=== PATIENT | female | born 1970 | race Caucasian/White ===

== ENCOUNTER 2019-05-12 00:47 | Day surgery (SDC) | payer BC, SELFPAY ==
[2019-05-11 13:05] VITALS: BMI 36.3
[2019-05-12 08:42] VITALS: BP 148/77; PULSE 79; RESP 16; TEMP 36.4; O2SAT 98
--- NOTE | 2019-05-12 09:04 | PM.HPGS ---
History of Present Illness History of Present Illness Consent: Risks, benefits, and alternatives have been discussed and questions answered. Patient agrees to proceed with procedure. Chief complaint: GERD Narrative: Marti Lester is a 49 year old W female reffered for evaluation of increased heartburn and chest pain. Cardiac evaluation was negative. Pt. improved on aciphex 20 mg po BID. [facility] Social History Social History Gender identity (if verbalized by the patient): Female Meds Home Medications and Allergies Home Medications Medication Instructions Recorded Confirmed Type amlodipine 5 mg PO HS 03/30/19 05/12/19 History cetirizine 10 mg PO 03/30/19 05/12/19 History hydrochlorothiazide 25 mg PO [facility] 03/30/19 05/12/19 History losartan 100 mg PO [facility] 03/30/19 05/12/19 History norethindrone-e.estradiol-iron 1 tablet PO 03/30/19 05/12/19 History [Junel FE 04/04 (28)] pravastatin 10 mg PO 03/30/19 05/12/19 History rabeprazole 20 mg PO 03/30/19 05/12/19 History thyroid (pork) [[place] Thyroid] 240 mg PO [facility] 03/30/19 05/12/19 History fluticasone propionate [Flonase 2 spray INTRANASAL HS 05/11/19 05/12/19 History Allergy Relief] montelukast 10 mg PO 05/11/19 05/12/19 History Allergies Allergy/AdvReac Type Severity Reaction Status Date / Time Sulfa (Sulfonamide Allergy Intermediate Swelling Verified 05/12/19 08:41 Antibiotics) doxycycline AdvReac Severe Nausea Verified 05/12/19 08:41 Vital Signs Vital Signs - 24 hr 05/12/19 08:42 Temperature 36.4 C Pulse Rate 79 Respiratory Rate 16 Blood Pressure 148/77 H Pulse Oximetry 98 Assessment and Plan Additional Plan EGD secondary to increased reflux and chest pain.
[2019-05-12] MEDS: LACTATED RINGERS 1,000 ML 150 ML IV CONT (09:07)
--- NOTE | 2019-05-12 09:17 | P.PNAN_ITS ---
Anes - Initial Pre Proc Eval Procedure: Operation Date: 05/12/19 09:00 Proposed Procedures p Esophagogastroduodenoscopy - Alexander Wisdom MD Date/Time: 05/12/19 09:17 Surgeon: Alexander Wisdom MD Pre Op Diagnosis: GERD Patient Data Age: 49 Gender: F Height: 5 ft 6 in Weight: 104.8 kg Last Vital Signs Temp 36.4 C 05/12/19 08:42 Pulse 79 05/12/19 08:42 Resp 16 05/12/19 08:42 BP 148/77 H 05/12/19 08:42 Pulse Ox 98 05/12/19 08:42 Allergies Allergy/AdvReac Type Severity Reaction Status Date / Time Sulfa (Sulfonamide Allergy Intermediate Swelling Verified 05/12/19 08:41 Antibiotics) doxycycline AdvReac Severe Nausea Verified 05/12/19 08:41 Home Medications Medication Instructions Recorded Confirmed Type amlodipine 5 mg PO HS 03/30/19 05/12/19 History cetirizine 10 mg PO 03/30/19 05/12/19 History hydrochlorothiazide 25 mg PO [facility] 03/30/19 05/12/19 History losartan 100 mg PO QA 03/30/19 05/12/19 History norethindrone-e.estradiol-iron 1 tablet PO 03/30/19 05/12/19 History [Junel 04/04 (28)] pravastatin 10 mg PO HS 03/30/19 05/12/19 History rabeprazole 20 mg PO 03/30/19 05/12/19 History thyroid (pork) [[place] Thyroid] 240 mg PO [facility] 03/30/19 05/12/19 History fluticasone propionate [Flonase 2 spray INTRANASAL HS 05/11/19 05/12/19 History Allergy Relief] montelukast 10 mg PO HS 05/11/19 05/12/19 History Patient hx anesthesia problems: none Family hx anesthesia problems: none PMFSH Past Medical History Medical History (Updated 05/12/19 @ 09:18 by Neri Mitchell MD) Asthma GERD (gastroesophageal reflux disease) HTN (hypertension) Obesity Social History Social History Gender identity (if verbalized by the patient): Female Anes - Eval Final PreProcedure Day of Procedure 05/12/19 09:17 Patient weight: obese Heart: regular rate and rhythm Lungs: clear to auscultation Airway: Mallampati scale class II Neurological: alert and oriented Last oral intake: >/= 8 hours ASA classification: III Emergent: no Anesthetic plan: proceed Anesthesia type and monitoring: general GIVS and standard monitoring Informed Consent: The patient's anesthetic plan and its attendant risks and benefits were discussed with the patient/family/POA. Questions were solicited and answers provided to the satisfaction of the patient/family/POA.
[2019-05-12 10:20] VITALS: BP 119/65; PULSE 68; RESP 25; O2SAT 99
[2019-05-12 10:30] VITALS: BP 126/93; PULSE 72; RESP 22; O2SAT 99
[2019-05-12 10:40] VITALS: BP 134/79; PULSE 68; RESP 18; O2SAT 99
== END 2019-05-12 10:55 | disposition home or self-care (01) ==
PROVIDERS: PCP Nurse Practitioner Family; Visit Provider Internal Medicine Gastroenterology
PROC: 0DJ08ZZ Inspection of Upper Intestinal Tract, Via Natural or Artificial Opening Endoscopic (ICD-10-PCS; CPT 43235; principal; 2019-05-12 09:00)
DX: K21.0 Gastro-esophageal reflux disease with esophagitis (principal); K29.50 Unspecified chronic gastritis without bleeding; J45.909 Unspecified asthma, uncomplicated; I10 Essential (primary) hypertension; E66.9 Obesity, unspecified; Z68.37 Body mass index [BMI] 37.0-37.9, adult
CPT/HCPCS: 43239; 87081; 88305; J2001; J2704; J7120

== ENCOUNTER 2019-10-11 01:40 | Outpatient (CLI) | payer BC, SELFPAY ==
[2019-10-12 14:41] LABS: SARS-CoV-2 RNA PCR Negative
== END 2019-10-11 01:41 | disposition home or self-care (01) ==
LOC: ANHCOVIDDT 01:41
PROVIDERS: PCP Nurse Practitioner Family; Visit Provider Internal Medicine Gastroenterology
DX: Z01.812 Encounter for preprocedural laboratory examination (principal); Z11.59 Encounter for screening for other viral diseases
CPT/HCPCS: 87635; C9803; U0003

== ENCOUNTER 2019-10-13 02:48 | Day surgery (SDC) | payer BC, SELFPAY ==
[2019-10-13 06:55] VITALS: BP 139/59; PULSE 82; RESP 17; TEMP 36.4; O2SAT 99
[2019-10-13] MEDS: LACTATED RINGERS 1,000 ML 150 ML IV CONT (07:07)
--- NOTE | 2019-10-13 07:12 | P.HP_ITS ---
History of Present Illness History of Present Illness Consent: Risks, benefits, and alternatives have been discussed and questions answered. Patient agrees to proceed with procedure. Chief complaint: Neoplasm Screening Narrative: Marti Lester is a 49 year old W female referred for a screening colonoscopy. Last colonoscopy was greater than 10 years ago. Patient is asymptomatic and there is no family history of colon cancer. [facility] Past Medical History Medical History Asthma GERD (gastroesophageal reflux disease) HTN (hypertension) Obesity Social History Social History Gender identity (if verbalized by the patient): Female Meds Home Medications and Allergies Home Medications Medication Instructions Recorded Confirmed Type [place] Thyroid 240 mg PO [facility] 03/30/19 10/13/19 History amlodipine 5 mg PO 03/30/19 10/13/19 History cetirizine 10 mg PO 03/30/19 10/13/19 History hydrochlorothiazide 25 mg PO [facility] 03/30/19 10/13/19 History losartan 100 mg PO [facility] 03/30/19 10/13/19 History norethindrone-e.estradiol-iron 1 tablet PO 03/30/19 10/13/19 History [June04/04 (28)] pravastatin 10 mg PO 03/30/19 10/13/19 History rabeprazole 20 mg PO 03/30/19 10/13/19 History fluticasone propionate [Flonase 2 spray INTRANASAL 05/11/19 10/13/19 History Allergy Relief] montelukast 10 mg PO 05/11/19 10/13/19 History Allergies Allergy/AdvReac Type Severity Reaction Status Date / Time Sulfa (Sulfonamide Allergy Intermediate Swelling Verified 10/13/19 06:51 Antibiotics) doxycycline AdvReac Severe Nausea Verified 10/13/19 06:51 Vital Signs Vital Signs - 24 hr 10/13/19 06:55 Temperature 36.4 C Pulse Rate 82 Respiratory Rate 17 Blood Pressure 139/59 L Pulse Oximetry 99 Exam Const: Orientation/consciousness: patient oriented x3 Resp: Auscultation: clear to auscultation bilaterally Cardio: Rate: regular rate Rhythm: regular rhythm Heart sounds: no murmurs GI: GI Palp: Yes Soft to palpation, No Tenderness to palpation present (GI), Yes No hepatosplenomegaly present and No Palpable mass present Auscultation: normal bowel sounds Neuro: General: patient oriented x3 and no focal motor deficits Extrem: General: no pedal edema Assessment and Plan Additional Plan Screening colonoscopy in average risk patient
--- NOTE | 2019-10-13 07:37 | P.PNAN_ITS ---
Anes - Initial Pre Proc Eval Procedure: Operation Date: 10/13/19 08:00 Proposed Procedures p Screening Colonoscopy - Alexander Wisdom MD Date/Time: 10/13/19 07:37 Surgeon: Alexander Wisdom MD Pre Op Diagnosis: Neoplasm Screening Patient Data Age: 49 Gender: F Height: 5 ft 6 in Weight: 98.7 kg Last Vital Signs Temp 97.6 F 10/13/19 06:55 Pulse 82 10/13/19 06:55 Resp 17 10/13/19 06:55 BP 139/59 L 10/13/19 06:55 Pulse Ox 99 10/13/19 06:55 Allergies Allergy/AdvReac Type Severity Reaction Status Date / Time Sulfa (Sulfonamide Allergy Intermediate Swelling Verified 10/13/19 06:51 Antibiotics) doxycycline AdvReac Severe Nausea Verified 10/13/19 06:51 Home Medications Medication Instructions Recorded Confirmed Type [place] Thyroid 240 mg PO QAM 03/30/19 10/13/19 History amlodipine 5 mg PO 03/30/19 10/13/19 History cetirizine 10 mg PO HS 03/30/19 10/13/19 History hydrochlorothiazide 25 mg PO QA 03/30/19 10/13/19 History losartan 100 mg PO QA 03/30/19 10/13/19 History norethindrone-e.estradiol-iron 1 tablet PO HS 03/30/19 10/13/19 History [04/04 (28)] pravastatin 10 mg PO HS 03/30/19 10/13/19 History rabeprazole 20 mg PO 03/30/19 10/13/19 History fluticasone propionate [Flonase 2 spray INTRANASAL HS 05/11/19 10/13/19 History Allergy Relief] montelukast 10 mg PO HS 05/11/19 10/13/19 History Patient hx anesthesia problems: none Family hx anesthesia problems: none PMFSH Past Medical History Medical History Asthma GERD (gastroesophageal reflux disease) HTN (hypertension) Obesity Social History Social History Gender identity (if verbalized by the patient): Female Anes - Eval Final PreProcedure Day of Procedure 10/13/19 07:37 Patient weight: obese Heart: regular rate and rhythm Lungs: clear to auscultation Airway: Mallampati scale class II Neurological: alert and oriented Last oral intake: >/= 8 hours ASA classification: III Emergent: no Anesthetic plan: proceed Anesthesia type and monitoring: general GIVS and standard monitoring Informed Consent: The patient's anesthetic plan and its attendant risks and benefits were discussed with the patient/family/POA. Questions were solicited and answers provided to the satisfaction of the patient/family/POA.
[2019-10-13 08:33] VITALS: BP 99/72; PULSE 65; RESP 19; O2SAT 100
[2019-10-13 08:43] VITALS: BP 115/66; PULSE 60; RESP 18; O2SAT 97
[2019-10-13 08:53] VITALS: BP 121/71; PULSE 61; RESP 16; O2SAT 98
== END 2019-10-13 09:07 | disposition home or self-care (01) ==
PROVIDERS: PCP Nurse Practitioner Family; Visit Provider Internal Medicine Gastroenterology
PROC: 0DJD8ZZ Inspection of Lower Intestinal Tract, Via Natural or Artificial Opening Endoscopic (ICD-10-PCS; CPT 45378; principal; 2019-10-13 08:00)
DX: Z12.11 Encounter for screening for malignant neoplasm of colon (principal); K64.4 Residual hemorrhoidal skin tags; I10 Essential (primary) hypertension; E78.5 Hyperlipidemia, unspecified; K21.9 Gastro-esophageal reflux disease without esophagitis; E66.9 Obesity, unspecified; Z68.35 Body mass index [BMI] 35.0-35.9, adult; Z88.2 Allergy status to sulfonamides; Z79.3 Long term (current) use of hormonal contraceptives; Z79.899 Other long term (current) drug therapy
CPT/HCPCS: G0121; J2704; J7120

== ENCOUNTER 2021-12-10 14:18 | Outpatient (RCR) | payer BC, SELFPAY ==
[2021-12-10 15:40] VITALS: BMI 38.9
[2021-12-10 15:41] VITALS: BMI 38.9
== END 2022-02-24 09:32 | disposition home or self-care (01) ==
LOC: ANHDMC 14:18
PROVIDERS: PCP Nurse Practitioner Family; Visit Provider Nurse Practitioner Family
DX: E66.9 Obesity, unspecified (principal); Z71.3 Dietary counseling and surveillance
CPT/HCPCS: 97802

== ENCOUNTER 2023-02-13 02:50 | Day surgery (SDC) | payer BC, SELFPAY ==
[2023-02-04 11:48] VITALS: BMI 33.5
--- NOTE | 2023-02-11 09:52 | SUR.PREOP ---
Patient called regarding upcoming procedure. Reviewed preop instructions, appointment times, and procedure prep.
--- NOTE | 2023-02-12 14:14 | P.HP_ITS ---
History of Present Illness History of Present Illness Consent: Risks, benefits, and alternatives have been discussed and questions answered. Patient agrees to proceed with procedure. Chief complaint: rectal pain Narrative: Marti Lester is a 53 year old female referred for colon cancer screening and investigation of rectal pain. Her last colonoscopy was 3 years ago and was unremarkable. lately however she has seen blood in her stools. The blood will be in toilet bowl and often on the toilet paper as well. Is generally bright red. She denies having to strain but has bowel movements that alternate between loose and hard. She has been referred by her service tech to a vulvar specialists regarding lichen planus. Review of Systems Review of Systems: All systems reviewed & are unremarkable except as noted in HPI and below PMFSH Past Medical History Medical History Asthma GERD (gastroesophageal reflux disease) HTN (hypertension) Obesity Social History Social History Alcohol intake: current Alcohol use details: Socially Substance use type: does not use Living arrangements: other Additional living arrangements comments: with sp Gender identity (if verbalized by the patient): Female Spiritual care concerns: No Meds Home Medications and Allergies Home Medications Medication Instructions Recorded Confirmed Type amlodipine 5 mg tablet 5 mg PO HS 03/30/19 02/04/23 History cetirizine 10 mg tablet 10 mg PO HS 03/30/19 02/04/23 History losartan 100 mg tablet 100 mg PO QAM 03/30/19 02/04/23 History pravastatin 10 mg tablet 20 mg PO HS 03/30/19 02/04/23 History rabeprazole 20 mg tablet,delayed 20 mg PO BID 03/30/19 02/04/23 History release thyroid (pork) 240 mg tablet 240 mg PO QAM 03/30/19 02/04/23 History ([place] Thyroid) fluticasone propionate 50 2 spray intranasal HS 05/11/19 02/04/23 History mcg/actuation nasal spray,suspension (Flonase Allergy Relief) montelukast 10 mg tablet 10 mg PO HS 05/11/19 02/04/23 History dapagliflozin propanediol 10 mg 10 mg PO DAILY 02/04/23 02/04/23 History tablet (Farxiga) meloxicam 15 mg tablet 15 mg PO PRN pain 02/04/23 02/04/23 History metformin 500 mg tablet 500 mg PO DAILY 02/04/23 02/04/23 History oxybutynin chloride 5 mg tablet 5 mg PO BID 02/04/23 02/04/23 History semaglutide 1 mg/dose (4 mg/3 mL) 1 mg subcut WEEKLY 02/04/23 02/04/23 History subcutaneous pen injector (Ozempic) Allergies Allergy/AdvReac Type Severity Reaction Status Date / Time Sulfa (Sulfonamide Allergy Intermediate Swelling Verified 02/13/23 11:47 Antibiotics) doxycycline AdvReac Severe Nausea Verified 02/13/23 11:47 Exam Resp: Auscultation: clear to auscultation bilaterally Cardio: Rate: regular rate Rhythm: regular rhythm GI: GI Palp: Yes Soft to palpation and No Tenderness to palpation present (GI) Assessment and Plan Assessment and plan (1) Rectal pain: Code(s): K62.89 - Other specified diseases of anus and rectum Status: Acute Assessment and Plan: Colonoscopy with possible biopsy or polypectomy or cautery or injection of substances.
[2023-02-13 11:49] VITALS: BP 160/84; PULSE 86; RESP 18; TEMP 36.3; O2SAT 99
[2023-02-13] MEDS: LACTATED RINGERS 1,000 ML 150 ML IV CONT (12:02)
[2023-02-13 12:06] LABS: Glucose Point of Care 97 mg/dl (65-105)
--- NOTE | 2023-02-13 12:27 | WPDANESEPPF ---
Anes - Initial Pre Proc Eval Procedure: Operation Date: 02/13/23 13:00 Proposed Procedures p Colonoscopy - Sunny Thompson MD Date/Time: 02/13/23 12:27 Surgeon: Sunny Thompson MD Pre Op Diagnosis: rectal pain Patient Data Age: 53 Gender: F Height: 1.66 m Weight: 95.9 kg Last Vital Signs Temp 97.3 F L 02/13/23 11:49 Pulse 86 02/13/23 11:49 Resp 18 02/13/23 11:49 BP 160/84 H 02/13/23 11:49 Pulse Ox 99 02/13/23 11:49 O2 Del Method Room Air 02/13/23 11:49 Allergies Allergy/AdvReac Type Severity Reaction Status Date / Time Sulfa (Sulfonamide Allergy Intermediate Swelling Verified 02/13/23 11:47 Antibiotics) doxycycline AdvReac Severe Nausea Verified 02/13/23 11:47 Home Medications Medication Instructions Recorded Confirmed Type amlodipine 5 mg tablet 5 mg PO HS 03/30/19 02/04/23 History cetirizine 10 mg tablet 10 mg PO HS 03/30/19 02/04/23 History losartan 100 mg tablet 100 mg PO QAM 03/30/19 02/04/23 History pravastatin 10 mg tablet 20 mg PO HS 03/30/19 02/04/23 History rabeprazole 20 mg tablet,delayed 20 mg PO BID 03/30/19 02/04/23 History release thyroid (pork) 240 mg tablet 240 mg PO QAM 03/30/19 02/04/23 History ([place] Thyroid) fluticasone propionate 50 2 spray intranasal HS 05/11/19 02/04/23 History mcg/actuation nasal spray,suspension (Flonase Allergy Relief) montelukast 10 mg tablet 10 mg PO HS 05/11/19 02/04/23 History dapagliflozin propanediol 10 mg 10 mg PO DAILY 02/04/23 02/04/23 History tablet (Farxiga) meloxicam 15 mg tablet 15 mg PO PRN pain 02/04/23 02/04/23 History metformin 500 mg tablet 500 mg PO DAILY 02/04/23 02/04/23 History oxybutynin chloride 5 mg tablet 5 mg PO BID 02/04/23 02/04/23 History semaglutide 1 mg/dose (4 mg/3 mL) 1 mg subcut WEEKLY 02/04/23 02/04/23 History subcutaneous pen injector (Ozempic) Laboratory Tests 02/13/23 12:02 POC Capillary Glucose 97 mg/dl (65-105) Patient hx anesthesia problems: none Family hx anesthesia problems: none Results Review: All pre-operative results and documents have been reviewed as part of the pre-operative evaluation. [facility] Past Medical History Medical History Asthma GERD (gastroesophageal reflux disease) HTN (hypertension) Obesity Social History Social History Alcohol intake: current Alcohol use details: Socially Substance use type: does not use Living arrangements: other Additional living arrangements comments: with sp Gender identity (if verbalized by the patient): Female Spiritual care concerns: No Anes - Eval Final PreProcedure Day of Procedure 02/13/23 12:27 Patient weight: normal Heart: regular rate and rhythm Lungs: clear to auscultation Airway: Mallampati scale class II Neurological: alert and oriented Last oral intake: >/= 8 hours ASA classification: III Emergent: no Anesthetic plan: proceed Anesthesia type and monitoring: general GIVS and standard monitoring Results Review: All pre-operative results and documents have been reviewed as part of the pre-operative evaluation. Informed Consent: The patient's anesthetic plan and its attendant risks and benefits were discussed with the patient/family/POA. Questions were solicited and answers provided to the satisfaction of the patient/family/POA.
[2023-02-13] MEDS: ONDANSETRON INJ 4 MG/2 ML VIAL IV PUSH (12:32)
[2023-02-13 13:01] VITALS: BP 129/79; PULSE 85; RESP 18; O2SAT 97
[2023-02-13 13:11] VITALS: BP 135/81; PULSE 95; RESP 18; O2SAT 98
[2023-02-13 13:21] VITALS: BP 134/84; PULSE 94; RESP 18; O2SAT 99
== END 2023-02-13 13:26 | disposition home or self-care (01) ==
PROVIDERS: PCP Nurse Practitioner Family; Visit Provider Internal Medicine Gastroenterology
PROC: 0DJD8ZZ Inspection of Lower Intestinal Tract, Via Natural or Artificial Opening Endoscopic (ICD-10-PCS; CPT 45378; principal; 2023-02-13 13:00)
DX: K62.89 Other specified diseases of anus and rectum (principal); K64.4 Residual hemorrhoidal skin tags; K21.9 Gastro-esophageal reflux disease without esophagitis; I10 Essential (primary) hypertension; E66.9 Obesity, unspecified; Z68.34 Body mass index [BMI] 34.0-34.9, adult
CPT/HCPCS: 45378; 82948; J2405; J2704; J7120

== ENCOUNTER 2024-09-05 20:44 | Emergency (ER) | payer OTHER, SELFPAY ==
[2024-09-05] VITALS (11 sets, daily range): BP systolic 121–156; BP diastolic 61–82; PULSE 83–99; RESP 12–20; TEMP 36.1; O2SAT 91–99
--- NOTE | ~2024-09-05 | XR_ITS ---
CHEST RADIOGRAPH CLINICAL HISTORY: Heart palpitations . COMPARISON: 03/30/2019 TECHNIQUE: Single portable view of the chest. FINDINGS The cardiomediastinal silhouette is unremarkable. Increased interstitial markings are identified bilaterally, findings suggesting mild pulmonary vascul ar congestion. The lungs are otherwise clear. IMPRESSION: Mild pulmonary vascular congestion, an interval change, without focal infiltrate or effusion. Reviewed, dictated and finalized at location A. IMPRESSION: Mild pulmonary vascular congestion, an interval change, without focal infiltrat e or effusion.
--- NOTE | 2024-09-05 20:46 | ECG_ITS ---
Test Date: 2024-09-05 20:51:40 Measurements Intervals [place] Rate: 96 P: 29 MI: 162 QRS: 11 QRSD: 90 T: 32 QT: 298 QTc: 378 Interpretive Statements SINUS RHYTHM WITH FREQUENT VENTRICULAR PREMATURE COMPLEXES POSSIBLE ANTERIOR MYOCARDIAL INFARCTION , PROBABLY OLD CONSIDER INFERIOR INFARCT, AGE INDETERMINATE BORDERLINE ST-T WAVE ABNORMALITY- ANT/HIGH LAT LEADS ABNORMAL ECG No previous ECG available for comparison Electronically Signed On 09-06-2024 06:11:58 CDT by Edison Bhakta D.O.
--- NOTE | 2024-09-05 22:41 | ED_ITS ---
HPI - General Adult General Chief complaint: Dizziness Stated complaint: dizziness, low bp, irregular HR, afib on watch Time Seen by Provider: 09/05/24 22:19 History of Present Illness HPI narrative: 54-year-old female presented to the emergency department for evaluation for heart palpitations. Patient does have a history of hypertension does take amlodipine and hydrochlorothiazide and losartan. Patient states her blood pressure was low this morning so she did not take her blood pressure medication. Patient states yesterday she did work and the son and suspects that she may be dehydrated. Patient was having issues with lightheadedness today. Patient initially describes his dizziness but states that is not vertigo. Related Data Home Medications ?Medication ?Instructions ?Recorded ?Confirmed ?Last Taken ?Type blood sugar diagnostic (ShotlstTouch 06/23/23 07/05/24 Unknown History Ultra Test strips) blood-glucose meter (ShotlstTouch 06/23/23 07/05/24 Unknown History Ultra2 Meter) lancets 30 gauge (OneTouch Delica 06/23/23 07/05/24 Unknown History Plus Lancet) estradiol 1 mg/gram (0.1 %) 1 packet transdermal DAILY 06/25/23 07/05/24 Unknown History transdermal gel packet methotrexate sodium 2.5 mg tablet 15 mg PO WEEKLY 07/05/24 07/05/24 Unknown History Allergies Allergy/AdvReac Type Severity Reaction Status Date / Time Sulfa (Sulfonamide Allergy Intermediate Swelling Verified 09/05/24 21:11 Antibiotics) doxycycline AdvReac Severe Abdominal Verified 09/05/24 21:11 Pain Review of Systems 2 Review of Systems: All systems reviewed & are unremarkable except as noted in HPI and below PMFSH Past Medical History Medical History Asthma Dermatosis of scalp Diabetes GERD (gastroesophageal reflux disease) HTN (hypertension) Hyperlipidemia Hypothyroidism Joint pain Lichen sclerosus of female genitalia Obesity Osteoarthritis Overactive bladder Pain in finger Seasonal allergic rhinitis Urinary frequency Urinary incontinence Vitamin D deficiency Surgical History Surgical History H/O colonoscopy 2020 H/O esophagogastroduodenoscopy 2020 H/O knee surgery History of carpal tunnel release History of total left hip replacement Family History Family History Mother Heart disease Hypertension Father Hypercholesterolemia Acute myocardial infarction Heart disease Hypertension Sibling Hypertension Heart disease Hypercholesterolemia Social History Social History (Updated 07/04/24 @ 13:53 by Noman Hyde) Social History: 06/28/24 very confident with medical forms Smoking status: Never smoker Alcohol intake: current Alcohol use details: Socially Substance use: never Do You Feel Safe in your Home?: Yes Lack of Transportation: No Lack of Food: Never True Current Housing: I Have Housing Concerned About Future Housing: No Difficulty Paying Gas/Electric Bills: No Difficulty Paying for Meds: No Currently Unemployed: No Education: Master's Degree or Higher Difficulty w/ Childcare or Family Care: No Living arrangements: with family Additional living arrangements comments: Occupation/Education: occupation Additional occupation/education comments: Nurse Practioner at [employer] Gender identity (if verbalized by the patient): Female Spiritual care concerns: No Agree to blood products: Yes Exam 2 Narrative: APPEARANCE: Well appearing, no pain, no distress, well-nourished. HEAD: normocephalic, atraumatic. EYES: PERRLA/EOMI, conjunctivae clear. NOSE: Normal no drainage EARS:TMS clear with good light reflex. THROAT: Pharynx clear, no exudate. NECK: Supple. No adenopathy, no masses. RESPIRATORY: Airway patent, respirations nonlabored. Clear to auscultation bilaterally, no rales, rhonchi, wheezing. CARDIOVASCULAR: Regular rate and rhythm without murmurs rubs or gallops. ABDOMINAL: Soft, nontender, nondistended, normal bowel sounds MUSCULOSKELETAL: Moves all extremities. Strength/ROM intact, No edema, No calf tenderness. NEURO: Alert. Cranial nerves II through XII intact. Grossly intact SKIN: Warm, dry. Normal Color Course Vital Signs Vital signs: Vital Signs Temperature 97 F L 09/05/24 21:05 Pulse Rate 83 09/05/24 21:05 Respiratory Rate 18 09/05/24 21:05 Blood Pressure 156/82 H 09/05/24 21:05 Pulse Oximetry 97 09/05/24 21:05 Oxygen Delivery Room Air 09/05/24 21:05 Temperature 98.1 F 09/06/24 00:24 Pulse Rate 85 09/06/24 00:24 Respiratory Rate 21 H 09/06/24 00:24 Blood Pressure 122/72 09/06/24 00:24 Pulse Oximetry 98 09/06/24 00:24 Oxygen Delivery Room Air 09/05/24 21:05 Medical Decision Making [facility] Narrative Medical decision making narrative: 54-year-old female presents emergency department for evaluation for lightheaded dizziness and heart palpitations. Patient is currently afebrile with a leukocytosis of 10.3 and hemoglobin 13.4. INR 1.0. Patient's potassium was 2.9 this was replaced orally. No other acute abnormalities on her CMP TSH and Mag were within normal limits. Chest x-ray showed mild pulmonary vascular congestion. EKG showed normal sinus rhythm with frequent PVCs. Patient had no episodes of atrial fibrillation or SVT in the emergency department. No overlying evidence of infection, patient was encouraged close follow-up with her primary care physician for additional outpatient cardiac testing including a Holter monitor. Differential Diagnosis Differential Diagnosis: SVT, AFib, dehydration, PVCs, left great abnormality Vital Signs Vital Signs: Vital Signs Temperature 97 F L 09/05/24 21:05 Pulse Rate 83 09/05/24 21:05 Respiratory Rate 18 09/05/24 21:05 Blood Pressure 156/82 H 09/05/24 21:05 Pulse Oximetry 97 09/05/24 21:05 Oxygen Delivery Room Air 09/05/24 21:05 Temperature 98.1 F 09/06/24 00:24 Pulse Rate 85 09/06/24 00:24 Respiratory Rate 21 H 09/06/24 00:24 Blood Pressure 122/72 09/06/24 00:24 Pulse Oximetry 98 09/06/24 00:24 Oxygen Delivery Room Air 09/05/24 21:05 Lab Data Lab results reviewed: Yes I reviewed the patient's lab results. 09/05/24 22:46 09/05/24 22:46 Labs: Lab Results 09/05/24 Range/Units 22:46 WBC 10.3 H (4.5-10.0) K/mm3 RBC 4.61 (4.2-5.4) M/mm3 Hgb 13.4 (12.0-15.0) g/dL Hct 40.7 (37.0-47.0) % MCV 88.3 (80-100) fl MCH 29.1 (26-34) pg MCHC 32.9 (32-36) g/dl RDW 14.1 (11.5-14.5) % Plt Count 262 (150-375) k/mm3 MPV 10.6 H (7.4-10.4) fl Immature Gran % (Auto) 0.3 (0-0.5) % Neut % (Auto) 60.6 (45.5-73.1) % Lymph % (Auto) 29.5 (18.3-44.2) % Oliver % (Auto) 8.1 (2.6-8.5) % Eos % (Auto) 0.9 (0-4.4) % Baso % (Auto) 0.6 (0.2-1.2) % Lymph # (Auto) 3.05 (0.9-3.2) K/mm3 Oliver # (Auto) 0.8 H (0.1-0.6) K/mm3 Eos # (Auto) 0.1 (0-0.3) K/mm3 Baso # (Auto) 0.1 (0.0-0.1) K/mm3 Abs Immat Gran (auto) 0.03 (0.00-0.031) K/mm3 Absolute Neuts (auto) 6.3 (1.3-6.7) K/mm3 Absolute Nucleated RBC 0.000 (0.0-0.012) K/mm3 Nucleated RBC % 0.0 (0.0-0.2) % PT 13.4 (11.1-14.7) Seconds INR 1.0 APTT 23.6 (22.3-36.8) Seconds Sodium 139 (137-145) mmol/L Potassium 2.9 L (3.4-5.0) mmol/L Chloride 103 (98-107) mmol/L Carbon Dioxide 27 (22-30) mmol/L Anion Gap 9 (4-12) mmol/L BUN 12 (7-17) mg/dL Creatinine 0.70 (0.7-1.0) mg/dL Estim Creat Clear Calc 93 ml/min Estimated GFR > 60 (59 - ) Glucose 121 H (65-110) mg/dL Calcium 9.7 (8.4-10.2) mg/dL Magnesium 2.0 (1.6-2.3) mg/dL Total Bilirubin 0.3 (0.2-1.3) mg/dL AST 45 H (14-36) U/L ALT 60 H (6-35) U/L Alkaline Phosphatase 103 (38-126) U/L Total Protein 7.6 (6.3-8.2) g/dL Albumin 4.4 (3.5-5.1) g/dL TSH (Reflex) 0.603 (0.465-4.68) uIU/mL Imaging Data Radiologist's impression: Impressions Chest X-Ray 09/05/24 22:30 IMPRESSION: Mild pulmonary vascular congestion, an interval change, without focal infiltrate or effusion. Discharge Plan Discharge Clinical Impression: Frequent PVCs Patient Disposition: Home Condition: Stable Instructions: Antibiotic Form, Heart Palpitations (DC) Additional Instructions: Home medications as directed. Drink plenty of fluids. Have close follow-up with your primary care physician for additional outpatient cardiac testing potentially including a Holter monitor. If you have any worsening symptoms then please call or return to the emergency department. Patient Language: Botswanan Prescriptions: No Action estradiol 1 mg/gram (0.1 %) gel in packet 1 packet transdermal DAILY meloxicam 15 mg tablet 15 mg PO PRN Qty: 90 1RF amlodipine 5 mg tablet 5 mg PO HS Qty: 90 1RF rabeprazole 20 mg tablet,delayed release (DR/EC) 20 mg PO BID Qty: 180 1RF oxybutynin chloride 5 mg tablet 5 mg PO BID Qty: 180 3RF losartan 100 mg tablet 100 mg PO QAM Qty: 90 1RF hydrochlorothiazide 25 mg tablet 25 mg PO DAILY Qty: 90 1RF methotrexate sodium 2.5 mg tablet 15 mg PO WEEKLY (DME) lancets [ShotlstTouch Delica Plus Lancet] 30 gauge misc See Rx Instructions .Route Rx Instructions: use to check fasting blood sugar daily (DME) OneTouch Ultra Test Strip See Rx Instructions .Route Rx Instructions: check fasting glucose in the morning (DME) blood-glucose meter [OneTouch Ultra2 Meter] Misc See Rx Instructions .Route Rx Instructions: As directed cetirizine 10 mg tablet 10 mg PO HS Qty: 90 3RF albuterol sulfate 90 mcg/actuation HFA aerosol inhaler 2 puff inhalation Q4H PRN (Reason: shortness of breath or wheezing) Qty: 8.5 3RF Ozempic 2 mg/dose (8 mg/3 mL) pen injector 2 mg subcut WEEKLY Qty: 9 1RF montelukast 10 mg tablet 10 mg PO HS Qty: 90 3RF [place]ountain Thyroid 240 mg tablet 240 mg PO QAM Qty: 90 1RF pravastatin 40 mg tablet 40 mg PO QHS Qty: 90 1RF fluticasone propionate [Flonase Allergy Relief] 50 mcg/actuation spray,suspension 2 spray INTRANASAL HS Qty: 16 5RF Follow-up/Referrals: Loan Apodaca APRN [Primary Care Provider] -
[2024-09-05 22:53] LABS: Basophils Absolute Auto 0.1 K/mm3 (0.0-0.1); Basophils Percent Auto 0.6 % (0.2-1.2); Eosinophils Absolute Auto 0.1 K/mm3 (0-0.3); Eosinophils Percent Auto 0.9 % (0-4.4); Hematocrit 40.7 % (37.0-47.0); Hemoglobin 13.4 g/dL (12.0-15.0); Immature Granulocyte Absolute 0.03 K/mm3 (0.00-0.031); Immature Granulocyte Percent A 0.3 % (0-0.5); Lymphocytes Absolute Auto 3.05 K/mm3 (0.9-3.2); Lymphocytes Percent Auto 29.5 % (18.3-44.2); Mean Corpuscular HGB Conc 32.9 g/dl (32-36); Mean Corpuscular Hemoglobin 29.1 pg (26-34); Mean Corpuscular Volume 88.3 fl (80-100); Mean Platelet Volume 10.6 fl (7.4-10.4); Monocytes Absolute Auto 0.8 K/mm3 (0.1-0.6); Monocytes Percent Auto 8.1 % (2.6-8.5); Neutrophils Absolute Auto 6.3 K/mm3 (1.3-6.7); Neutrophils Percent Auto 60.6 % (45.5-73.1); Platelet Count Result 262 k/mm3 (150-375); Red Blood Count 4.61 M/mm3 (4.2-5.4); Red Cell Distribution Width 14.1 % (11.5-14.5); White Blood Count 10.3 K/mm3 (4.5-10.0)
[2024-09-05 23:05] LABS: Partial Thromboplastin Time 23.6 Seconds (22.3-36.8); Prothrombin Time 13.4 Seconds (11.1-14.7)
[2024-09-05 23:07] LABS: Alanine Aminotransferase 60 U/L (6-35); Albumin Level 4.4 g/dL (3.5-5.1); Alkaline Phosphatase 103 U/L (38-126); Anion Gap 9 mmol/L (4-12); Aspartate Amino Transferase 45 U/L (14-36); Bilirubin,Total 0.3 mg/dL (0.2-1.3); Blood Urea Nitrogen 12 mg/dL (7-17); Calcium 9.7 mg/dL (8.4-10.2); Carbon Dioxide 27 mmol/L (22-30); Chloride 103 mmol/L (98-107); Estimated CRCL calculation 93 ml/min; Estimated Glomerular Filt Rate > 60; Glucose 121 mg/dL (65-110); Potassium 2.9 mmol/L (3.4-5.0); Sodium 139 mmol/L (137-145); Total Protein 7.6 g/dL (6.3-8.2)
[2024-09-05] MEDS: POTASSIUM CHLORIDE 20 MEQ PACKET (FOR LIQUID) 40 MEQ PO (23:33)
[2024-09-05 23:38] LABS: Thyroid Stimulating Hormone Reflex 0.603 uIU/mL (0.465-4.68)
[2024-09-06 00:24] VITALS: BP 122/72; PULSE 85; RESP 21; TEMP 36.7; O2SAT 98
== END 2024-09-06 00:25 | disposition home or self-care (01) ==
PROVIDERS: Emergency Provider Emergency Medicine; PCP Nurse Practitioner Family
DX: I49.3 Ventricular premature depolarization (principal); I10 Essential (primary) hypertension; J45.909 Unspecified asthma, uncomplicated; E11.9 Type 2 diabetes mellitus without complications; E03.9 Hypothyroidism, unspecified; E78.5 Hyperlipidemia, unspecified; E55.9 Vitamin D deficiency, unspecified; K21.9 Gastro-esophageal reflux disease without esophagitis; M19.90 Unspecified osteoarthritis, unspecified site; N32.81 Overactive bladder; R32 Unspecified urinary incontinence; Z79.899 Other long term (current) drug therapy; Z96.652 Presence of left artificial knee joint; R09.89 Other specified symptoms and signs involving the circulatory and respiratory systems; R94.31 Abnormal electrocardiogram [ECG] [EKG]; Z79.85 Long-term (current) use of injectable non-insulin antidiabetic drugs
CPT/HCPCS: 36415; 71045; 80053; 83735; 84443; 85025; 85610; 85730; 93005; 99284; A9270

== ENCOUNTER 2024-10-27 14:21 | Outpatient (CLI) | payer OTHER, SELFPAY ==
--- OUTSIDE RECORDS SUMMARY | 2024-10-27 14:25 | XMS_ITS | Encounter Summary ---
Author Organization [facility] Address [address] [place] [address] Care Team Providers Care Kaiako Kura [place] Maori Name Role Phone Unavailable Primary Care Provider Unavailabl e Encounter Details Date Type Department Care Team (Late Contact Info) Description 08/30/2024 Results Follow-Up [facility] Shelton Tilley [address] [facility] [address] [place] [address] [place] [address] [address] [facility] [address] [place] [address] XR CLAVICLE BILAT, HEPATIC FUNCTION PANEL Social History Tobacco Use Types Packs/Day Years Used Date Smoking Tobacco: Never Alcohol Use Standard Drinks/Week Comments Yes 0 (1 standard drink = 0.6 oz pur e alcohol) Rare on occassions Comments No Sex and Gender Information Value Date Recorded Sex Assigned at Female 12/24/2022 3:08 PM CDT Legal Sex Female 3:27 PM CDT Gender Identity Female 12/24/2022 3:08 PM CDT Sexual Orientation Not on file documented as of this encounter Plan of Treatment Upcoming Encounters Date Type Department Care Team (Late st Contact Info) Description 02/28/2025 9: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 [place] [address] Melita Vanessa MD [address] [place] [address] documented as of this encounter Visit Diagnoses Not on filedocumented in this encounter
--- OUTSIDE RECORDS SUMMARY | 2024-10-27 14:25 | XMS_ITS | Clinical Summary ---
Author Organization [facility] Address [address] [place] [address] Care Team Providers Care Electricity Trading Analyst Name Role Phone Unavailable Primary Care Provider Unavailabl e Encounters Date Type Department Care Team Description 09/15/2024 Telephone [facility], [address] [phone] Aditya Calderon MD Appointment Request from Last 3 Months Social History Tobacco Use Types Packs/Day Years Used Date Smoking Tobacco: Never Assessed Comments Unknown Sex and Gender Information Value Date Recorded Sex Assigned at Not on file Legal Sex Female 1:45 PM CDT Gender Identity Not on file Sexual Orientation Not on file Plan of Treatment Upcoming Encounters Date Type Department Care Team (Late st Contact Info) Description 12/21/2024 9:15 AM CDT Office Visit [facility] [facility], [address] [phone] Aditya Calderon MD [facility] [address] [place], [place] [id number] Health Maintenance Due Date Last Done Comments Cervical Cancer Screening Pa p Smear (Age 30 to 64) Every 3 Years 1968 Colorectal Cancer Screening Colonoscopy (10 Years) 1968 Annual Physical 01/13/1971 Hepatitis C 01/13/1986 DTaP, Tdap and Td Vaccines ( 1 - Tdap) 01/13/1987 Hepatitis B Vaccines (1 of 3 - 19+ 3-dose series) 01/13/1987 Cervical Cancer Screening Pa p with HPV Testing (Age 30 to 64) Every 5 Years 01/13/1998 Cervical Cancer Screening with HPV 01/13/1998 Mammogram Screening 2008 Pneumococcal Vaccine: 50+ Ye ars (1 of 1 - PCV) 01/13/2018 Zoster Vaccines (1 of 2) 01/13/2018 COVID-19 Vaccine (1 - 2023-2 5 season) 2023 Meningococcal B Vaccine Aged Out No l onger eligible based on patient's age to complete this topic Meningococcal Vaccine Aged Out No carole tiera eligible based on patient's age to complete this topic RSV Immunizations Under 20 Months Aged Out No longer eligible based on patient's age to complete this topic Insurance R
--- OUTSIDE RECORDS SUMMARY | 2024-10-27 14:25 | XMS_ITS | Clinical Summary ---
Author Organization [facility] Address [address] [place] [address] Care Team Providers Care Customer Security Clerk Name Role Phone Singh Venegas MD Unavailable [phone] Loan Apodaca APRN-COMPLAINT INSPECTOR Primary Care Provider Source Comments [facility],non-owned Affiliates and Associated Physician Practices is amultiple site organization consisting of ambulatory clinics and hospital sitesin [place], [place], [place] and [place]. This disclosure is being madepursuant to the Care Everywhere program and may not contain all information available regarding this patient. Last updated 17.[facility] Allergies Active Allergy Reactions Criticality Noted Date Comments Doxycycline GI Discomfort,Other Low 09/30/2016 Polymyxin B-Trimethoprim Swelling Medium 09/30/2016 eyedrop Sulfa Drugs Urticaria,Rash Medium 04/10/2017 Medications * Be aware that medications may not be up to date on this document. Alwaysverify current medications with the patient. MULTIVITAMIN PO Take by mouth. Activ e CALCIUM + D PO Take by mouth. Active PEPCID PO Take by mouth. Activ e SINGULAIR 10 MG tablet 1 Active Albuterol Sulfate 108 (90 Base) MCG/ACT Inhale 180 mcg by mouth Active amLODIPine (NORVASC) 5 MG tablet amlodipine 5 mg tablet TK 1 T PO QD 9 Active cetirizine (ZYRTEC) 10 MG tablet cetirizine 10 mg tablet TAKE 1 TABLET BY MOUTH EVERY DAILY 9 Active vitamin D3 (CHOLECALCIFER OL) 25 MCG (1000 UNITS) tablet VITAMIN D TABLET 0 Active fluticasone propionate (FLONASE) 50 MCG/ACT nasal spray [place] 1 spray into the nose Active hydroCHLOROthi azide (HYDRODIURIL) 12.5 MG every 24 hours Activ e losartan (COZAAR) 100 MG tablet losartan 100 mg tablet TAKE 1 TABLET BY MOUTH EVERY DAY 9 Active pravastatin (PRAVACHOL) 10 MG tablet pravastatin 10 mg tablet TAKE 1 TABLET BY MOUTH EVERY DAY 1 Active RABEprazole EC (ACIPHEX) 20 MG tablet rabeprazole 20 mg tablet,delayed release TAKE 1 TABLET BY MOUTH TWICE DAILY 9 Active thyroid (ARMOUR THYROID) 240 MG tablet [place] Thyroid 240 mg tablet TAKE 1 TABLET BY MOUTH EVERY DAY 9 Active triamcinolone acetonide (KENALOG) 0.025 % ointment triamcinolone acetonide 0.025 % topical ointment LILIYA EXT AA BID FOR 2 WKS PRN Active meloxicam (MOBIC) 15 MG tablet 1 Active Active Problems Problem Noted Date Diagnosed Date Urinary incontinence 01/26/2019 Abnormal liver enzymes 11/09/2018 Palpitations 11/09/2018 Syncope and collapse 11/09/2018 Dizziness 04/01/2018 Asthma 09/11/2017 HLD (hyperlipidemia) 09/11/2017 Hypothyroidism 09/11/2017 Gastroesophageal reflux disease 01/13/2017 Carpal tunnel syndrome 07/14/2011 Internal hemorrhoids 09/02/2010 Anemia, iron deficiency 08/02/2010 Urine, incontinence, stress female 08/02/2010 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 IMO update 06 14 2017 Migraine 01/31/2009 Environmental allergies 01/31/2009 2-3* Cystocele 01/31/2009 1* Rectocele 01/31/2009 Heavy menstrual period 01/31/2009 HTN (hypertension) 01/31/2009 Tachycardia 01/31/2009 Graves disease 01/31/2009 Hypocalcemia 12/08/2008 Resolved Problems Problem Noted Date Diagnosed Date Resolved Date Cough 11/09/2018 07/03/2020 Family History Medical History Relation Name Comments Cancer - Breast Maternal Aunt Relation Name Status Comments Maternal Aunt Social History Tobacco Use Types Packs/Day Years Used Date Smoking Tobacco: Never Smokeless Tobacco: Never Alcohol Use Standard Drinks/Week Comments Yes 0 (1 standard drink = 0.6 oz pur e alcohol) occas Comments No Sex and Gender Information Value Date Recorded Sex Assigned at Not on file 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 Gender Identity Not on file Sexual Orientation Not on file Last Filed Vital Signs Vital Sign Reading Time Taken Comments Blood Pressure 136/84 08/02/2010 12:23 PM CDT Pulse - - Temperature - - Respiratory Rate - - Oxygen Saturation - - Inhaled Oxygen Concentration - - Weight 87.1 kg (192 lb) 08/02/2010 12:23 PM CDT Height - - Body Mass Index - - Plan of Treatment Health Maintenance Due Date Last Done Comments COLOGUARD (AGES 45-75) - COLON CA SCREENING 1968 COLON MONITORING 1968 COLONOSCOPY - COLON CA SCREENING 1968 CT COLONOGRAPHY - COLON CA SCREENING 1968 Colorectal Cancer Screening 1968 FIT - COLON CA SCREENING 1968 FLEX SIG - COLON CA SCREENING 1968 HIV SCREENING 01/13/1983 HEPATITIS C SCREENING 01/09/1986 DTAP/TDAP/TD VACCINES (1 - Tdap) 01/13/1987 HEPATITIS B VACCINE (1 of 3 - 19+ 3-dose series) 01/13/1987 PNEUMOCOCCAL VACCINE 50+ (1 of 1 - PCV) 01/13/2018 ZOSTER VACCINE (1 of 2) 01/13/2018 COVID-19 VACCINE (3 - season) 2023 03/25/2020, 03/03/2020 MAMMOGRAM 12/17/2023 12/16/2021, 06/14, 03/13/2011, Additional history exists DEPRESSION SCREENING 03/16/2024 INFLUENZA VACCINE (#1) 2024 9, 01/20/2018, 12/15/2016, Additional history exists HIB VACCINE Aged Out No longer eligi ble based on patient's age to complete this topic HPV VACCINE Aged Out No longer eligi ble based on patient's age to complete this topic MENINGOCOCCAL (Group B) VACCINE SHARED DECISION-MAKING Aged Out No longer eligible based on patient's age to complete this topic MENINGOCOCCAL GROUPS A/C/Y/W VACCINE Aged Out No longer eligible based on patient's age to complete this topic Procedures Procedure Name Priority Date/Time Associated Diagnosis Comments MAMMO BILAT SCREENING Routine 03/13/2011 Screening mammogram from Last 3 Months or Most Recently Relevant to Health Maintenance Results * MAMMO SCREENING DIGITAL IMAGE BILAT (03/13/2011) Anatomical Region Laterality Modality Breast Bilateral Other Singh Venegas MD MAMMO ORDERABLES Final Result from Last 3 Months or Most Recently Relevant to Health Maintenance Insurance NELIDA * Guarantor: MARTI SERVIN Account Type Relation to Patient Date of Phone Billing Address Personal/Family 1970 [id number] [place] [address] Care Teams Customer Security Clerk Relationship Specialty Start Date End Date Singh Venegas MD [address] [place] [address] [place] [id number] PCP - OBGYN 01/31/09 Loan Apodaca APRN-COMPLAINT INSPECTOR [address] [place] [address] PCP - General 06/01/20
--- OUTSIDE RECORDS SUMMARY | 2024-10-27 14:25 | XMS_ITS | Clinical Summary ---
Author Organization [facility] Address [address] [place] [address] Care Team Providers Care Parts Runner Name Role Phone Loan Apodaca NP Primary Care Provider + Cecilia Rowan MD Unavailable [phone] Allergies Active Allergy Reactions Criticality Noted Date Comments Doxycycline Stomach upset,Other (See comments) Low 09/30/2016 Other Swelling Medium 09/30/2016 eyedrop Polymyxin B Sulf-Trimethoprim Swelling Medium 09/30/2016 Sulfa (Sulfonamide Antibiotics) Hives,Rash,Urticaria Medium 04/10/2017 Medications amLODIPine (NORVASC) 5 mg tablet Take 5 mg by mouth nightly. 8 Active thyroid (ARMOUR THYROID) 240 mg tablet Take 240 mg by mouth community health coordinator before breakfast. 4 Active cetirizine (ZyrTEC) 10 mg tablet Take 10 mg by mouth nightly. 8 Active montelukast (SINGULAIR) 10 mg tablet Take 10 mg by mouth nightly. [address] (ACIPHEX) 20 mg EC tablet Take 20 mg by mouth nightly. 8 Active albuterol sulfate 90 mcg/actuation aerosol powdr breath activated Inhale 180 mcg every 4 (four) hours as needed. Active fluticasone (FLONASE) 50 mcg/actuation nasal spray Administer 1 spray into each nostril 2 (two) times a day as needed for rhinitis. Active amoxicillin (AMOXIL) 500 mg tablet/capsule Take 4 tablet 1 hour prior to dental procedure. 8 tablet/capsu le 1 9 Active Additional Information Patient not taking.Reported on 11/19/2021 hydroCHLOROthia zide (HYDRODIURIL) 25 mg tablet TK 1 T PO QD 1 9 Active losartan (COZAAR) 100 mg tablet TK 1 T PO QD 1 9 Active pravastatin (PRAVACHOL) 10 mg tablet 20 mg 1 9 Active cholecalciferol (VITAMIN D-3) 25 mcg (1,000 unit) tablet VITAMIN D TABLET 0 Active famotidine (PEPCID) 40 mg tablet Take by mouth 2 (two) times a day as needed 0 Active dxygnkfv-wtmq-q ollag-hyalur ac 709-948-21-2 mg capsule Take by mouth Active meloxicam (MOBIC) 15 mg tablet TAKE 1 TABLET(15 MG) BY MOUTH DAILY 30 tablet 2 2 Active benzonatate (TESSALON) 100 mg capsule as needed 2 Active metFORMIN (GLUCOPHAGE) 500 mg tablet 2 Active oxybutynin (DITROPAN) 5 mg tablet 2 Active cyanocobalamin (Vitamin B-12) 1,000 mcg tabletIndicatio ns:Prevention of Vitamin B12 Deficiency Take 1,000 mcg by mouth daily Active Active Problems Problem Noted Date Diagnosed Date Family history of ischemic h eart disease and other diseases of the circulatory system 04/11/2019 Shortness of breath 04/11/2019 Snoring 04/11/2019 Chest pain 04/11/2019 Encounter for screening for cardiovascular disor ders 04/11/2019 Urinary incontinence 01/26/2019 Abnormal liver enzymes 11/09/2018 Cough 11/09/2018 Dysuria 11/09/2018 Fracture of bone 11/09/2018 Indigestion 11/09/2018 Injury of ankle 11/09/2018 Palpitations 11/09/2018 Posterior rhinorrhea 11/09/2018 Rash 11/09/2018 Syncope and collapse 11/09/2018 Vitamin D deficiency 11/09/2018 Dizziness 04/01/2018 Osteoarthritis of left hip 09/11/2017 Hypothyroidism 09/11/2017 Essential hypertension 09/11/2017 HLD (hyperlipidemia) 09/11/2017 Asthma 09/11/2017 Gastroesophageal reflux disease 09/11/2017 History of anemia 09/11/2017 Obesity 09/11/2017 Seasonal allergic rhinitis 01/13/2017 Carpal tunnel syndrome 07/14/2011 Internal hemorrhoids 09/02/2010 Iron deficiency anemia due to chronic blood loss 09/02/2010 Anemia, iron deficiency 08/02/2010 Urine, incontinence, stress female 08/02/2010 Mass of skin 07/05/2010 Chondromalacia of patella 11/29/2009 Rectocele 01/31/2009 Cystocele 01/31/2009 Encounter for health-related screening 9 Overview (11/11/2017): Overview: Last PAP 08/02/10: normal Last MAMM 03/13/11: normal R, all ok after add views L per pt 03/20/11 Last Colonoscopy 05/2010: normal/ internal hemds. IMO update 06 14 2017 Environmental allergies 01/31/2009 Graves disease 01/31/2009 Heavy menstrual period 01/31/2009 Migraine 01/31/2009 Tachycardia 01/31/2009 Hypocalcemia 12/08/2008 Migraine headache 12/08/2008 Postoperative hypothyroidism 12/08/2008 Encounter for preventive health examination 07/14 Immunizations Immunization Administration Dates Next Due Influenza, Quadrivalent, Spl it, Intramuscular 12/15/2016 Influenza, Quadrivalent, Spl it, Preservative Free, Intramuscular 01/20/2018,12/12/2014 Influenza, Trivalent, IM (MDV) 01/07/2019,2014,11/16/2013 Influenza, Trivalent, Preser vative Free, Intramuscular 04/16/2016 Pfizer SARS-CoV-2 Monovalent Vaccination (12+ Yrs) PURPLE 03/25/2020,03/25/2020,03/04/2020,03/03 Tdap 10/28/2013 Surgical History Surgery Date Site/Laterality Comments CARPAL TUNNEL RELEASE Right LIPOMA RESECTION Bilateral right arm and left shoulder COLONOSCOPY UPPER GASTROINTESTINAL ENDOSCOPY ABLATION for graves' WISDOM TOOTH EXTRACTION GANGLION CYST EXCISION JOINT REPLACEMENT HIP SURGERY Medical History Medical History Date Comments Thyrotoxicosis without thyroid storm Hyperthyroidism - (Added by TW Conv) IBS (irritable bowel syndrome) Constipation Graves disease Asthma Hypertension Seasonal allergies Hyperlipidemia Anemia Acid reflux Osteoarthritis Depression Migraines Peripheral neuropathy HLD (hyperlipidemia) 09/11/2017 Hypothyroid no functional th yroid at this time due to radioactive thyroid ablation Diabetes mellitus (HCC) Family History Medical History Relation Name Comments Arthritis Father Family history of arthritis - (Added by Conv) Heart attack Father Heart disease Father Family history of cardiac disorder - (Added by Conv) Hypertension Father Family history of hypertension - (Added by TW Conv) Arthritis Mother Family history of arthritis - (Added by TW Conv) Diabetes Mother Family history of diabetes mellitus - (Added by TW Conv) Heart disease Mother Family history of cardiac disorder - (Added by TW Conv) Hypertension Mother Family history of hypertension - (Added by TW Conv) Arthritis Sister 1 Family history of arthritis - (Added by TW Conv) Hypertension Sister 2 Family history of hypertension - (Added by Conv) Anesthesia problems Neg Hx Relation Name Status Comments Father Mother Alive Sister 1 Sister 2 Social History Tobacco Use Types Packs/Day Years Used Date Smoking Tobacco: Never Smokeless Tobacco: Never Alcohol Use Standard Drinks/Week Comments Yes 0 (1 standard drink = 0.6 oz pur e alcohol) less than 1 drink/week Comments No Sex and Gender Information Value Date Recorded Sex Assigned at Not on file Legal Sex Female 3:07 AM RIGGING MAN Gender Identity Female 11/09/2018 7:43 AM CDT Sexual Orientation Not on file Occupation Industry Job Start Date Job End Date [employer] Not on file Not on file Not on file Obstetrics History Para Term AB IAB SAB Ectopic Multiple Livin g Live Births 2 2 2 Date Outcome GA Total Labor Labor/2nd/3rd Weight Sex Type Anes PTL Maya A1 A5 Name Clin Term 3.912 kg (8 lb 10 oz) inga Term estefany Last Filed Vital Signs Vital Sign Reading Time Taken Comments Blood Pressure 163/78 09/15/2017 4:52 PM CDT Pulse 76 09/15/2017 4:52 PM CDT Temperature 36.5 C (97.7 F) 09/15/2017 4:52 PM CDT Respiratory Rate 18 09/15/2017 4:52 PM CDT Oxygen Saturation 100% 09/15/2017 4:52 PM CDT Inhaled Oxygen Concentration - - Weight 108.9 kg (240 lb) 11/19/2021 9:40 AM CDT Height 167.6 cm (5' 6) 11/19/2021 9:40 AM CDT Body Mass Index 38.74 11/19/2021 9:40 AM CDT Plan of Treatment Health Maintenance Due Date Last Done Comments Cervical Cancer Screening 1968 Colon Cancer Screening-Colonoscopy 1968 Depression Screening 1968 Hepatitis C Screening 1968 Hepatitis B Screening 01/13/1986 Regular Well Visit/Exam 18-64 01/13/1986 Pneumococcal vaccine <65 (1 of 2 - PCV) 01/13/1987 Zoster Vaccine (1 of 2) 01/13/2018 DTaP/Tdap/Td Vaccine (2 - Td or Tdap) 10/29/2023 10/28/2013 Covid-19 Vaccine (2023-2 5 season) 2023 03/25/2020, 03/25/2020, 03/04/2020, Additional history exists Influenza Vaccine (#1) 2024 , 01/03/2023, 01/03/2022, Additional history exists Breast Cancer Screening-Mammogram 02/02/2025 02/03/2024, 01/27/2023, 12/16/2021, Additional history exists Medical Devices Implanted Type Area [facility] Sales Representative Device Identifier Shelf Expiration Date Model / Serial / Lot [employer] [id number] Continuum 50mm 12 Scallop Cluster Hole Snap Fit Groove Integrate - [id number] Implanted:Qty: 1 on 09/14/2017 by Haider Hollis MD at [facility] Left: Hip [employer] [id number] 05/14/2027 [id number] / / [id number] [employer] [id number] Trilogy 6.5mm 30mm Self Tap Acetabular Cortical Screw Bone - [id number] Implanted:Qty: 1 on 09/14/2017 by Haider Hollis MD at [facility] Left: Hip [employer] [id number] 07/14/2027 [id number] / / [id number] [employer] [id number] Trilogy 6.5mm 35mm Self Tap Screw Bone - [id number] Implanted:Qty: 1 on 09/14/2017 by Haider Hollis MD at [facility] Left: Hip [employer] [id number] 06/14/2027 [id number] / / [id number] [employer] [id number] 50mm 32mm Hip Hh Neutral Liner Acetabular Longevity Continuum - [id number] Implanted:Qty: 1 on 09/14/2017 by Haider Hollis MD at [facility] Left: Hip [employer] [id number] 08/13/2022 [id number] / / [id number] [employer] [id number] Taperloc 137mm Type 1 Press Fit Full Profile Hip 133d 9 Standard - [id number] Implanted:Qty: 1 on 09/14/2017 by Haider Hollis MD at [facility] Left: Hip [employer] 04/28/2027 [id number] / / [employer] [id number] 32mm Modular Hip -3mm Head Femoral Biolox Delta - [id number] Implanted:Qty: 1 on 09/14/2017 by Haider Hollis MD at [facility] Left: Hip [employer] [id number] / / Procedures Procedure Name Priority Date/Time Associated Diagnosis Comments SCREENING MAMMOGRAM BILATERAL W TAZ Schedule Routine, Read Routine (OP Routine) 02/03/2024 3:19 PM RIGGING MAN Screening mammogram, encounter for from Last 3 Months or Most Recently Relevant to Health Maintenance Results * Screening Mammogram Bilateral W Taz (02/03/2024 3:19 PM RIGGING MAN) Anatomical Region Laterality Modality Breast Bilateral Mammography Impressions 02/03/2024 4:36 PM RIGGING MAN BI-RADS ATLAS category (overall): 1 - Negative There is no mammographic evidence of malignancy. A 1 year screening mammogram is recommended. The patient has been or will be contacted. We recommend annual screening mammography for women at average risk of breast cancer beginning at age 40, based on guidelines of the [employer] [place] [employer] (ACR Practice Parameter for the Performance of Screening and Diagnostic Mammography) and [place] [employer]. For women with and elevated risk of breast cancer, please refer to the ACR Practice Parameter for specific screening recommendations. The patient will be entered into a reminder system with a target due date of 1 year for her next screening exam. Narrative 02/03/2024 4:36 PM RIGGING MAN Screening Mammogram Bilateral W Taz: 02/03/24 The study was acquired using full field digital technology and interpreted from soft copy. 2D digital mammographic views, as well as 3D digital tomosynthesis were performed in the CC and MLO projections. CLINICAL: Screening mammogram, encounter for. No relevant medical history has been documented for this patient. No known family history of breast cancer. COMPARISONS: 01/27/2023 Screening Mammogram Bilateral W Taz 12/16/2021 Screening Mammogram Bilateral W Taz 06/29/2020 Screening Mammogram Bilateral W Taz 02/19/2018 Screening Mammogram Bilateral W Taz BREAST TISSUE: The breasts are heterogeneously dense, which may obscure small masses. FINDINGS: No suspicious masses, suspicious calcifications, or other suspicious findings are seen within either breast. There has been no suspicious change. us Self Screening Mammogram IMG MAMMO PROCEDURES Fi nal Result from Last 3 Months or Most Recently Relevant to Health Maintenance Insurance [facility] [place] [id number] [facility] Member Subscriber Plan / Payer (Ef fective 2019-Present) Name:Marti Lester Relation to Subscriber:Self Name:Marti Lester Payer ID:[id number] (NAIC) Type: Diagnostic Healthcare Address: [facility] [id number] [place] [address] [facility] Address: [facility] [address] [place] [address] [facility] [place] [address] [facility] [employer] [facility] Advance Directives For more information, please contact: [phone] * Full Code (Latest Code Status on File) Date Activated Date Inactivated Comments 09/14/2017 2:04 PM 09/15/2017 8:51 PM Care Teams Parts Runner Relationship Specialty Start Date End Date Loan Apodaca NP PCP - General Nurse Practitioner 12/16/21 Cecilia Rowan MD 2022 [address] [address] Referring Physician Gynecology 12/23/21
--- OUTSIDE RECORDS SUMMARY | 2024-10-27 14:25 | XMS_ITS | Clinical Summary ---
Author Organization [facility] Address [address] [place] [address] Phone Care Team Providers Care Security Flex Utility Officer Name Role Phone Unavailable Primary Care Provider Unavailabl e Allergies Active Allergy Reactions Criticality Noted Date Comments Doxycycline Abdominal Pain Low 09/30/2016 Polymyxin B Sulf-Trimethoprim Swelling Medium 2016 Sulfa (Sulfonamide Antibiotics) Hives Medium 03/17 Medications benzonatate (TESSALON) 100 mg capsule Take 2 Capsules (200 mg) by mouth 3 times daily as needed. 30 Capsule 05/20/2022 3:35 PM FRENCH DRAWER 3 Active calcium citrate-vitami n D3 500 mg-12.5 mcg /5 gram Powder Take by mouth. 1 Active cyanocobalamin 1,000 mcg Tablet Take 1,000 mcg by mouth daily. 2 Active famotidine (PEPCID) 40 mg tablet Take by mouth. 0 Active fluticasone propionate (FLONASE) 50 mcg/spray [place], Suspension nasal inhaler Administer 2 Sprays in each nostril daily at bedtime. 16 Gram 5 04/19/2024 10:51 AM FRENCH DRAWER 4 Active cholecalcifero l, vitamin D3, 5,000 unit Take 5,000 Units by mouth daily. Active oxyBUTYnin (DITROPAN) 5 mg tablet Take 1 Tablet (5 mg) by mouth 2 times daily. 180 Tablet 3 05/11/2024 11:41 AM FRENCH DRAWER 4 Active thyroid, pork, ([place] Thyroid) 240 mg tablet Take 1 Tablet (240 mg) by mouth daily in the morning. 90 Tablet 1 03/29/2024 2:40 PM FRENCH DRAWER 4 Active hydroCHLOROthi azide 25 mg tablet Take 1 Tablet (25 mg) by mouth daily. 90 Tablet 1 07/05/2024 12:16 PM CDT 4 Active meloxicam (MOBIC) 15 mg tablet Take 1 Tablet (15 mg) by mouth 1 time daily as needed for pain. 90 Tablet 1 04/19/2024 10:51 AM FRENCH DRAWER 4 Active cetirizine (ZyrTEC) 10 mg tablet Take 1 Tablet (10 mg) by mouth daily at bedtime. 90 Tablet 3 09/22/2024 11:11 AM CDT 5 Active albuterol sulfate HFA 90 mcg/actuation aerosol inhaler Take 2 Puffs by inhalation every 4 hours as needed for shortness of breath or wheezing. 8.5 Gram 3 04/19/2024 10:51 AM FRENCH DRAWER 5 Active montelukast (SINGULAIR) 10 mg tablet Take 1 Tablet (10 mg) by mouth daily at bedtime. 90 Tablet 3 09/22/2024 11:11 AM CDT 5 Active pravastatin (PRAVACHOL) 40 mg tablet Take 1 Tablet (40 mg) by mouth daily at bedtime. 90 Tablet 1 09/22/2024 11:11 AM CDT 5 Active amLODIPine (NORVASC) 5 mg tablet Take 1 Tablet (5 mg) by mouth daily at bedtime. 90 Tablet 1 10/24/2024 1:01 PM CDT 5 Active RABEprazole (ACIPHEX) 20 mg Tablet, Delayed Release (E.C.) Take 1 Tablet (20 mg) by mouth 2 times daily. 180 Tablet 1 09/22/2024 11:11 AM CDT 5 Active losartan (COZAAR) 50 mg tablet Take 1 Tablet (50 mg) by mouth daily. 90 Tablet 1 09/13/2024 2:18 PM CDT 5 Active semaglutide (Ozempic) 2 mg/dose (8 mg/3 mL) Pen Injector Inject 2 mg by subcutaneous injection every 7 days. 9 mL 1 09/22/2024 11:11 AM CDT 5 Active estradioL (Estrace) 0.01% (0.1 mg/g) vaginal creamIndicatio ns:Vaginal atrophy,Vulvar atrophy Apply dime-size amount to vulvar skin and around vaginal opening daily. 42.5 Gram 3 10/25/2024 1:11 PM CDT 5 Active betamethasone valerate (VALISONE) 0.1 % OintmentIndica tions:Lichen sclerosus Apply 2 grams to vulvar and perianal skin once a day. 90 Gram 1 10/25/2024 1:11 PM CDT 5 Active fluconazole (DIFLUCAN) 200 mg tabletIndicati ons:Vaginal discharge,Yeas t infection 1 tab po every other day x3 doses 3 Tablet 5 Active nystatin (MYCOSTATIN) 100,000 unit/gram OintmentIndica tions:Yeast infection Apply to affected area 2 times daily for 10 days. 30 Gram 5 025 Active pravastatin (PRAVACHOL) 40 mg tablet Take 1 Tablet (40 mg) by mouth daily at bedtime. 90 Tablet 1 03/29/2024 2:40 PM FRENCH DRAWER 4 025 Discontin ued(Dupli manuel Therapy) estradioL (Estrace) 0.01% (0.1 mg/g) vaginal creamIndicatio ns:Vaginal atrophy,Vulvar atrophy Apply dime-size amount to vulvar skin and around vaginal opening daily. 42.5 Gram 3 08/16/2024 3:27 PM CDT 4 025 Discontin ued(Reord er) betamethasone valerate (VALISONE) 0.1 % OintmentIndica tions:Lichen sclerosus Apply 2 grams to vulvar and perianal skin once a day. 90 Gram 1 05/11/2024 11:41 AM FRENCH DRAWER 4 025 Discontin ued(Reord er) benzonatate (TESSALON) 200 mg capsule Take 1 Capsule (200 mg) by mouth 3 times daily as needed for cough. 30 Capsule 05/11/2024 11:41 AM FRENCH DRAWER 5 025 Discontin ued(Dupli manuel Therapy) thyroid, pork, ([place] Thyroid) 240 mg tablet Take 1 Tablet (240 mg) by mouth daily in the morning. 90 Tablet 1 09/22/2024 11:11 AM CDT 5 025 Discontin ued(Dupli manuel Therapy) hydroCHLOROthi azide 25 mg tablet Take 1 Tablet (25 mg) by mouth daily. 90 Tablet 1 10/06/2024 12:27 PM CDT 5 025 Discontin ued(Dupli manuel Therapy) oxyBUTYnin (DITROPAN) 5 mg tablet Take 1 Tablet (5 mg) by mouth 2 times daily. 180 Tablet 3 08/16/2024 3:27 PM CDT 5 025 Discontin ued(Dupli manuel Therapy) fluticasone propionate (FLONASE) 50 mcg/spray [place], Suspension nasal inhaler Administer 2 Sprays in each nostril daily at bedtime. 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 Intramural leiomyoma of uterus 02/16/2024 Thickened endometrium 08/12/2023 Perimenopausal 05/26/2023 Abnormal uterine bleeding (AUB) 04/29/2023 Type 2 diabetes mellitus wit hout complication, without long-term current use of insulin 04/28/2023 Lichen sclerosus 04/28/2023 Vaginal atrophy 04/28/2023 Vulvar atrophy 04/28/2023 Chronic vulvitis 04/28/2023 Left Knee Pain 12/22/2022 Left Knee Osteoarthritis 12/22/2022 Environmental allergies 01/31/2009 Encounter for preventive health examination 07/14 Encounters Date Type Department Care Team Description 10/25/2024 Results Follow-Up [facility] - [facility]. [address] [facility] [place] [address] Melita Hernandez MD VAGINOSIS/VAGINITIS PANEL BASIC 10/24/2024 4:00 PM CDT Office Visit [facility]. [address] [facility] [place] [address] Melita Hernandez MD Lichen sclerosus (Primary Dx); LIZZY (stress urinary incontinence, female); Vaginal atrophy; Vulvar atrophy; Vaginal discharge; Yeast infection 09/28/2024 External Device Data STL ABSTRACTION Provider, Abstract 09/28/2024 External Device Data STL ABSTRACTION Provider, Abstract 09/28/2024 External Device Data STL ABSTRACTION Provider, Abstract 09/28/2024 External Device Data STL ABSTRACTION Provider, Abstract 08/31/2024 External Device Data STL ABSTRACTION Provider, Abstract 08/30/2024 9:13 AM CDT - 08/30/2024 11:59 PM CDT Hospital Encounter [facility] Imaging Services [address] [place] [address] Gaye Rosario NP Discharge Disposition: Home or Self Care 08/30/2024 8:30 AM CDT Office Visit [facility] [address] [address] Gaye Rosario NP Inflammatory arthritis (Primary Dx); Immunosuppression due to drug therapy; High risk medication use; Inflammatory osteoarthritis; Elevated LFTs; Clavicle pain 08/30/2024 External Device Data STL ABSTRACTION Provider, Abstract 08/30/2024 Results Follow-Up [facility] [address] [facility] [address] [place] [address] Gaye Rosario NP XR CLAVICLE BILAT, HEPATIC FUNCTION PANEL 08/23/2024 Orders Only [facility] [address] [address] [facility] [address] [place] [address] Rachele Diana RN 08/22/2024 Refill [facility] [address] [address] [facility] [address] [place] [address] Gaye Rosario NP Immunosuppression due to drug therapy (Primary Dx); Inflammatory arthritis; High risk medication use; Elevated liver enzymes 08/09/2024 External Device Data STL ABSTRACTION Provider, Abstract 08/05/2024 External Device Data STL ABSTRACTION Provider, Abstract 08/03/2024 External Device Data STL ABSTRACTION Provider, Abstract 08/03/2024 External Device Data STL ABSTRACTION Provider, Abstract from Last 3 Months Immunizations Immunization Administration Dates Next Due (ADACEL/BOOSTRIX)(10 YR UP) TDAP VACCINE, 0.5ML, IM 10/28/2013 (PFIZER)(12 YR UP) COVID-19 VACCINE - EMERGENCY USE AUTHORIZATION, MRNA, [id number](PF) 30 MCG/0.3 ML IM SUSP 03/25/2020,03/03/2020 INFLUENZA VACCINE QUADRIVALE NT 6 MOS UP IM 12/15/2016 INFLUENZA VACCINE QUADRIVALE NT 6 MOS UP PF IM 01/03/2023,01/03/2022,01/20/2018,2014 INFLUENZA VACCINE TRIVALENT SPLIT VIRUS, (6 MOS UP), 0.5ML (PF), IM 11/28/2023 Influenza Seasonal Unspecifi ed Formulation IM 12/25/2020,12/01/2019,01/07/2019,2014,11/16/2013 Influenza Seasonal Unspecifi ed Formulation PF IM 04/16/2016 Family History Medical History Relation Name Comments Migraines Daughter 1 Both Daughters Allergy-severe Father Emory Seasonal Heart Disease Father Emory Silent [place] and CABG x 2 High Cholesterol Father Emory Hypertension Father Emory Had bypass CAD. . Allergy-severe Mother Katherine Once did shot s Arthritis Mother Katherine Psoriatric Heart Disease Mother Katherine Afib High Cholesterol Mother Katherine Hypertension Mother Katherine Recently deceas ed. Osteoporosis Mother Katherine Other Mother Katherine Had TIA, erica ia Arthritis Sister Ayesha [place] Diabetes Sister Ayesha Heart Disease Sister Ayesha Has AAA and th oracic aneurism High Cholesterol Sister Ayesha Hypertension Sister Ayesha AAA that ruptur ed and Thoracic Aneurysm both repaired Relation Name Status Comments Daughter 1 Both Daughters Alive Daughter 2 Alive Father Emory Maternal Grandfather Maternal Grandmother Mother Katherine Paternal Grandfather Paternal Grandmother Sister Ayesha Social History Tobacco Use Types Packs/Day Years Used Date Smoking Tobacco: Never Tobacco Cessation:Counseling Given: Not Answered Alcohol Use Standard Drinks/Week Comments Yes 0 (1 standard drink = 0.6 oz pur e alcohol) Rare on occassions Comments No Sex and Gender Information Value Date Recorded Sex Assigned at Female 12/24/2022 3:08 PM CDT Legal Sex Female 3:27 PM CDT Gender Identity Female 12/24/2022 3:08 PM CDT Sexual Orientation Not on file Last Filed Vital Signs Vital Sign Reading Time Taken Comments Blood Pressure 114/80 10/24/2024 3:59 PM CDT Pulse 87 08/30/2024 8:24 AM CDT Temperature 36.7 C (98 F) 08/30/2024 8:24 AM CDT Respiratory Rate 20 05/14/2023 11:47 AM FRENCH DRAWER Oxygen Saturation 97% 08/30/2024 8:24 AM CDT Inhaled Oxygen Concentration - - Weight 99.6 kg (219 lb 9.6 oz) 10/24/2024 3:59 P M CDT Height 167.6 cm (5' 6) 10/24/2024 3:59 PM CDT Body Mass Index 35.44 10/24/2024 3:59 PM CDT Plan of Treatment Upcoming Encounters Date Type Department Care Team (Late st Contact Info) Description 02/28/2025 9:30 AM FRENCH DRAWER Office Visit [facility] Rheumatology [address] [facility] [address] [place] [address] [place] [address] [place] [address] 04/25/2025 3:40 PM FRENCH DRAWER Office Visit [facility] - [facility] [place]. [address] [facility] [place] [address] Melita Vanessa MD [address] [facility] [address] [place] [address] Health Maintenance Due Date Last Done Comments DIABETES ANNUAL FOOT EXAM 01/13/1986 DIABETES ANNUAL RETINAL EXAM 01/13/1986 DIABETES MICROALBUMIN ANNUAL SCREEN 01/13/1986 HEPATITIS B VACCINES (1 of 3 - 19+ 3-dose series) 01/13/1987 FIT-DNA Q 3 years 01/13/2013 FIT/FOBT Q 1 year 01/13/2013 Flex Sig/CT Colonography Q 5 years 01/13/2013 ZOSTER VACCINE (1 of 2) 01/13/2018 DIABETES HBA1C Q 6 MONTHS 05/07/2019 11/04/2018, LDL CHOLESTEROL ANNUAL 11/05/2019 11/04/2018 DTAP/TDAP/TD VACCINES (2 - T d or Tdap) 10/29/2023 10/28/2013 COVID-19 Vaccine (3 - 2023-2 5 season) 2023 03/25/2020, 03/03/2020 INFLUENZA VACCINE (#1) 2024 4, 01/03/2023, 01/03/2022, Additional history exists BREAST CANCER SCREENING 02/02/2025 02/03/20 24, 02/03/2024, 01/27/2023, Additional history exists PAP SMEAR 04/18/2027 04/18/2024, 04/16, 04/26/2020, Additional history exists CERVICAL CANCER SCREENING 04/18/2029 HPV/Cotest (21-29) 04/18/2029 04/18/2024 HPV/Cotest (30-65) 04/18/2029 04/18/2024 COLORECTAL SCREENING 10/12/2029 10/13/2019, 10/13/19 20 Colorectal Cancer Screening 10/12/2029 Procedures Procedure Name Priority Date/Time Associated Diagnosis Comments VAGINOSIS/VAGINITIS PANEL BASIC Routine 10/24/2024 4:54 PM CDT Vaginal discharge Yeast infection HEPATIC FUNCTION PANEL Routine 09/03/2024 9:56 AM CDT Elevated LFTs XR CLAVICLE BILAT Routine 08/30/2024 9:1 9 AM CDT Clavicle pain HEPATIC FUNCTION PANEL Routine 08/20/2024 7:16 AM CDT Immunosuppression due to drug therapy High risk medication use Elevated liver enzymes CERV/VAG CYTO AGE BASED SCREEN PAP Routine 04/18/2024 11:30 AM FRENCH DRAWER Well woman exam with routine gynecological exam Screening for HPV (human papillomavirus) Screening for malignant neoplasm of cervix LIPID PANEL Routine 11/04/2018 7:41 AM CDT HEMOGLOBIN A1C Routine 11/04/2018 7:41 AM CDT from Last 3 Months or Most Recently Relevant to Health Maintenance Results * (ABNORMAL) VAGINOSIS/VAGINITIS PANEL BASIC (10/24/2024 4:54 PM CDT) BACTERIAL VAGINOSIS NEGATIVE NEGATIVE [facility] VICKI SPECIES DETECTED(A) NOT DETECTED [facility] VICKI GLABRATA NOT DETECTED NOT DETECTED [facility] Comment: Vicki species C. albicans, C. tropicalis, C. parapsilosis, and/or C. dubliniensis can be detected, but not differentiated, in the Vicki spp. result. TRICHOMONAS VAGINALIS (TV), TMA NOT DETECTED NOT DETECTED [facility] Comment: Test Performed at: [facility] [address] [place] [address] Jeff Billy MD Genital SPECIMEN FROM VAGINA / Unknown 10/24/2024 4:54 PM CDT 10/25/2024 9:34 AM CDT Melita Chirinos MD MICROBIOLOGY - GEN ERAL ORDERABLES Final Result [facility] [phone] [facility] [address] [place] [address] * (ABNORMAL) HEPATIC FUNCTION PANEL (09/03/2024 9:56 AM CDT) Only the most recent of2 resultswithin the time period is included. TOTAL PROTEIN 6.8 6.1 - 8.1 g/dL [facility] ALBUMIN 4.2 3.6 - 5.1 g/dL [facility] GLOBULIN 2.6 1.9 - 3.7 g/dL (calc) [facility] ALBUMIN/GLOBULIN RATIO 1.6 1.0 - 2.5 (calc) [facility] BILIRUBIN TOTAL 0.4 0.2 - 1.2 mg/dL [facility] BILIRUBIN DIRECT 0.1 < OR = 0.2 mg/dL [facility] BILIRUBIN INDIRECT 0.3 0.2 - 1.2 mg/dL (calc) [facility] ALKALINE PHOSPHATASE 78 37 - 153 U/L [facility] AST 30 10 - 35 U/L [facility] ALT 49(H) 6 - 29 U/L [facility] Comment: Test Performed at: [facility] [address] [address] Jeff Billy MD Blood 09/03/2024 9:56 AM CDT 09/03/2024 9:57 AM CDT Gaye Rosario CREPING MACHINE OPERATOR HELPER CHEMISTRY ORDERABLES Final Result [facility] [phone] [address] * XR CLAVICLE BILAT (08/30/2024 9:19 AM CDT) Anatomical Region Laterality Modality Upper Extremity Computed Radiogr aphy 08/30/2024 9:20 AM CDT Impressions 08/30/2024 4:09 PM CDT IMPRESSION: 1. Degenerative changes at the acromioclavicular joints, right greater than left. DICTATION LOCATION: Location 4 Narrative 08/30/2024 4:09 PM CDT XR CLAVICLE BILAT DATE: 08/30/2024 9:19 AM HISTORY: Bilateral clavicular pain. COMPARISON: None. EXAMINATION: Two views of both clavicles. FINDINGS: Moderate degenerative changes at the right acromioclavicular joint and mild degenerative changes at the left acromioclavicular joint. There is no acute fracture or dislocation and no aggressive bone lesion. Procedure Note Dustin Patel MD - 08/30/2024 XR CLAVICLE BILAT DATE: 08/30/2024 9:19 AM HISTORY: Bilateral clavicular pain. COMPARISON: None. EXAMINATION: Two views of both clavicles. FINDINGS: Moderate degenerative changes at the right acromioclavicular joint and mild degenerative changes at the left acromioclavicular joint. There is no acute fracture or dislocation and no aggressive bone lesion. IMPRESSION: 1. Degenerative changes at the acromioclavicular joints, right greater than left. DICTATION LOCATION: Location 4 Gaye Rosario NP DIAGNOSTIC IMAGING OR DERABLES Final Result * CERV/VAG CYTO AGE BASED SCREEN PAP (04/18/2024 11:30 AM FRENCH DRAWER) COMMENT (PAP): [facility] Comment: This order for age-based cervical cancer and STI screening follows ACOG guidelines(PB 168, 140, PIS662). See individual assays for performing site location. CLINICAL INFORMATION [facility] Comment:None given LAST MENSTRUAL PERIOD [facility] Comment:None given PREV PAP: [facility] Comment:None given PREV BX: [facility] Comment:None given SOURCE [facility] Comment:Endocervix ADEQUACY: [facility] Comment: Satisfactory for evaluation. Endocervical/transformation zone component present. Age and/or menstrual status not provided GENERAL CATEGORIZATION: [facility] Comment:Cytology Results: Ot her; see interpretation/result PAP INTERP [facility] Comment: Negative for intraepithelial lesion. Endometrial cells present in a woman 45 years of age or older. COMMENT (PAP TEST) [facility] Comment: This Pap test has been evaluated with computer assisted technology. The clinical significance of endometrial cells should be interpreted in the context of menstrual history and reproductive status. If out of phase of cycle or after menopause, this finding may be associated with normal functioning endometrium, benign endometrium with stromal breakdown, hormonal alterations and, less commonly, endometrial neoplasia. Clinical correlation is suggested. AUTO CARRIER DRIVER: [facility] Comment: KMS, CT(ASCP) CT Screening location: [place] [address] [place] [address] PATHOLOGIST [facility] Comment: Devante Ladd M.D., Board Certified in Anatomic Pathology and Cytopathology. (electronic signature) EXPLANATORY NOTE [facility] Comment: EXPLANATORY NOTE: The Pap is a screening test for cervical cancer. It is not a diagnostic test and is subject to false negative and false positive results. It is most reliable when a satisfactory sample, regularly obtained, is submitted with relevant clinical findings and history, and when the Pap result is evaluated along with historic and current clinical information. HPV E6/E7 Not Detected Not Detected [facility] Comment: Methodology: Grants Specialist-Mediated Amplification This assay detects E6/E7 viral messenger RNA (mRNA) from 14 high-risk HPV types (16,18,31,33,35,39,45,51,52,56,58,59,66,68). Cervical sources are required for HPV testing. If a vaginal source from a patient who has had a total hysterectomy with removal of cervix was submitted, please contact the testing laboratory for alternative testing options. For additional information, please refer to http://education.Immunovaccine/faq/VCC024x8 (This link if provided for information/ educational purposes only.) Test Performed at: [facility] [address] [place] [address] Jeff HENRY Genital SWAB OF ENDOCERVIX / Unknown 04/18/2024 11:30 AM FRENCH DRAWER 04/19/2024 1:15 AM FRENCH DRAWER Melita Chirinos MD PATHOLOGY/CYTOLOGY ORDERABLES Final Result [facility] [phone] [facility] [id number] [place] [address] * HEMOGLOBIN A1C (11/04/2018 7:41 AM CDT) HEMOGLOBIN A1C 5.6 <5.7 % 11/04/2018 11:11 PM CDT [facility] EST. AVG GLUCOSE, A1C 114 mg/dL 11/04/2018 11:11 PM CDT [facility] [employer] [facility] Blood Venipuncture / Unknown 11/04/2018 7:41 AM CDT 11/04/2018 5:01 PM CDT [facility] LABORATORY [facility] - 11/04/2018 11:11 PM CDT HGB A1C INTERPRETATION NORMAL: <5.7% PRE-DIABETES: 5.7 - 6.4% DIABETES: 6.5% OR GREATER us Dereje Crawford DO CHEMISTRY ORDERABLES Final Res ult [id number] [address] [place] [address] * (ABNORMAL) LIPID PANEL (11/04/2018 7:41 AM CDT) CHOLESTEROL 255(H) <200 mg/dL 11/04/2018 7:57 PM [facility] [employer] [facility] TRIGLYCERIDE 221(H) <150 mg/dL 11/04/2018 7:57 PM [facility] [employer] [facility] HDL 35(L) 40 - 59 mg/dL 11/04/2018 7:57 PM [facility] [employer] [facility] LDL CALCULATED 176(H) <100 mg/dL 11/04/2018 7:57 PM [facility] [employer] [facility] NON-HDL CHOLESTEROL 220(H) <130 mg/dL 11/04/2018 7:57 PM T [facility] [employer] [facility] Blood Venipuncture / Unknown 11/04/2018 7:41 AM CDT 11/04/2018 5:01 PM CDT [facility] [employer] [facility] - 11/04/2018 7:57 PM CDT TOTAL CHOLESTEROL mg/dL Desirable <200 Borderline high 200-239 High >=240 TRIGLYCERIDES mg/dL Normal <150 Borderline high 150-199 High 200-499 Very high >=500 HDL CHOLESTEROL mg/dL Low <40 Normal 40-59 Desirable >=60 NON HDL CHOLESTEROL mg/dL Optimal <130 Near Optimal 130-159 Borderline High 160-189 Very High >=190 Calculated LDL mg/dL Optimal <100 Near Optimal 100-129 Borderline High 130-159 High 160-189 Very High >=190 ATPIII Guidelines Reference Ranges for Lipid Panels (NCEP/AMA) Dereje Crawford DO CHEMISTRY ORDERABLES Final Res ult [facility]# [id number] [address] [place] [address] from Last 3 Months or Most Recently Relevant to Health [place] [address] RX JEAN PLANS (INTERNAL) [facility] [employer] RX MEDIMPACT Member Subscriber Plan / Payer (Ef fective for All Dates) Name:LIZBETH LESTER Relation to Subscriber:Self Name:Lizbeth Lester Payer ID:Not on file Group ID:[id number] Type:RX Commercial Address: [place] RX [employer] Commercial RX [employer] Commercial RX [place] Commercial RX [place] Commercial RX [email or web address] Commercial RX OPTUM RX Member Subscriber Plan / Payer (Ef fective 2024-Present) Name:Lizbeth Lester Relation to Subscriber:Self Name:Lizbeth Lester Subscriber ID:Not on file Payer ID:Not on file Type:Not on file Address: [address] [facility] [employer] Advance Directives For more information, please contact: [phone] * Full Code (Latest Code Status on File) Date Activated Date Inactivated Comments 05/14/2023 9:08 AM 05/14/2023 2:47 PM * Full Code Date Activated Date Inactivated Comments 05/14/2023 7:31 AM 05/14/2023 9:08 AM
--- OUTSIDE RECORDS SUMMARY | 2024-10-27 14:25 | XMS_ITS | Encounter Summary ---
Author Organization [facility] Address [address] [place] [address] Care Team Providers Care Tents Assembler Name Role Phone Unavailable Primary Care Provider Unavailabl e Encounter Details Date Type Department Care Team (Late st Contact Info) Description 10/25/2024 Results Follow-Up [facility]. [address] [facility] [place] [address] Melita Lima MD [address] [facility] [address] [place] [address] VAGINOSIS/VAGINITIS PANEL BASIC Social History Tobacco Use Types Packs/Day Years [...] st Contact Info) Description 02/28/2025 9:30 AM FINANCIAL ASSOCIATE Office Visit [facility] Rheumatology [place] [address] [facility] [address] [place] [address] [place] [address] [place] [address] 04/25/2025 3:40 PM FINANCIAL ASSOCIATE Office Visit [facility], [place]. [address] [facility] [place] [address] Melita Vanessa MD [address] [facility] [address] [place] [address] documented as of this encounter Visit Diagnoses Not on filedocumented in this encounter
--- NOTE | 2024-11-08 11:48 | WPDHOLTEREM ---
Holter/Event Monitor Holter/Event Monitor Date of procedure: 10/27/24 Holter/Event Procedure: 3-7 Day Holter Monitor Indications: PVC's Conclusion: 1. 3 days holter monitor on 10/27/24. 2. Underlying rhythm is sinus rhythm. HR range 51-135 bpm; average HR 79 bpm. 3. There are rare premature supraventricular complexes. No supraventricular tachycardia. 4. There are rare premature ventricular complexes. No ventricular tachycardia. 5. No significant pauses greater than 3 seconds. 6. Patient reports 16 episodes of symptoms of lighteadedness which demonstrate sinus rhythm, HR range 79-105 bpm.
== END 2024-10-27 14:22 | disposition home or self-care (01) ==
PROVIDERS: PCP Nurse Practitioner Family; Visit Provider Nurse Practitioner Family
DX: I49.3 Ventricular premature depolarization (principal)
CPT/HCPCS: 93242